=== PATIENT | female | born 1990 | race Hispanic/Latino ===

== ENCOUNTER → 2025-04-12 | Day surgery (SDC) | payer OTHER ==
[~2025-04-12] MED LIST: LIDOCAINE HCL 2% LOCAL INJ 5 ML SDV VIAL INJ ONE; PLAN B ONE-STE1.5 MG PO; PROPOFOL IV EMULSION 10 MG/ML 20 ML VIAL ONE
[2025-04-12] MEDS: LACTATED RINGER'S 1,000 ML ONE (07:58)
[2025-04-12 09:37] VITALS: BP 122/76; PULSE 86; RESP 16; O2SAT 97
== END | disposition home or self-care (01) ==
LOC: OR 05:56
PROVIDERS: ATTEND Internal Medicine Gastroenterology
DX: K92.1 Melena (principal); K59.00 Constipation, unspecified; K64.8 Other hemorrhoids; K21.9 Gastro-esophageal reflux disease without esophagitis; Z78.9 Other specified health status; Z68.24 Body mass index [BMI] 24.0-24.9, adult
CPT/HCPCS: 45378; 81025; J2003; J2704; J7121